=== PATIENT | female | born 1975 | race Caucasian/White ===

== ENCOUNTER 2017-08-27 06:13 | Emergency (ER) | payer OTHER ==
[2017-08-27 06:22] VITALS: PULSE 93; TEMP 97.3
--- NOTE | 2017-08-27 06:30 | CPEKG ---
Heart Rate: 91 RR Interval: 659 P-R Interval: 156 QRSD Interval: 104 QT Interval: 364 QTC Interval: 448 P [place]: 59 QRS [place]: 40 T Wave [place]: 30 EKG Severity - BORDERLINE ECG - EKG Impression: SINUS RHYTHM EKG Impression: PROBABLE LATERAL INFARCT, OLD Electronically Signed By: Shilpa Jorgensen 28-Aug-2017 07:16:10
[2017-08-27 06:44] LABS: PLATELET COUNT 243 10^3/uL (150-400)
--- NOTE | 2017-08-27 06:55 | EDPHY ---
H & P Stated Complaint: Chest pain, nausea, back pain Time Seen by Provider: 08/27/17 06:39 HPI/ROS: HPI The patient presents with chest pain which began at about a.m. This morning. The pain was pressure-like in nature and not radiate. It was moderate in severity. She fell asleep. However, awoke with continued pain. She has not had this pain before. It was associated with mild nausea. Thought she might being anxiety which she does suffer many took a dose of Ativan without much improvement in her symptoms[place]. She currently is feeling much better. She does not have any shortness of breath, dizziness, diaphoresis. She did have a cardiac stress test several years ago which was unremarkable. She has per tension. REVIEW OF SYSTEMS Constitutional: No fever, no chills. Eyes: No discharge. ENT: No sore throat. Cardiovascular: Positive for chest pain, no palpitations. Respiratory: No cough, no shortness of breath. Gastrointestinal: No abdominal pain, no vomiting. Genitourinary: No hematuria. Musculoskeletal: No back pain. Skin: No rashes. Neurological: No headache. PMHx: Hypertension, anxiety , fibromyalgia, obesity, GERD Soc Hx: Lives with family, nonsmoker PHYSICAL General Appearance: Alert, no distress Eyes: Pupils equal and round no pallor or injection ENT, Mouth: Mucous membranes moist Respiratory: There are no retractions, lungs are clear to auscultation Cardiovascular: Regular rate and rhythm Gastrointestinal: Abdomen is soft and non-tender, no masses, bowel sounds normal Neurological: A&O, moves all extremities Skin: Warm and dry, no rashes Musculoskeletal: Neck is supple non tender Extremities: symmetrical, full range of motion Psychiatric: Patient is oriented X 3, there is no agitation Source: Patient Exam Limitations: No limitations - Personal History LMP (Females 10-55): Unknown Current Tetanus Diphtheria and Acellular Pertussis (TDAP): Yes - Medical/Surgical History Hx Asthma: No Hx Chronic Respiratory Disease: No Hx Diabetes: No Hx Cardiac Disease: No Hx Renal Disease: No Hx Cirrhosis: No Hx Alcoholism: No Hx HIV/AIDS: No Hx Splenectomy or Spleen Trauma: No Other PMH: fibromylagia , HTN - Social History Smoking Status: Never smoked Constitutional: Initial Vital Signs Temperature (C) 36.3 C 08/27/17 06:18 Heart Rate 93 08/27/17 06:18 Respiratory Rate 20 08/27/17 06:18 Blood Pressure 166/97 H 08/27/17 06:18 O2 Sat (%) 98 08/27/17 06:18 O2 Delivery Mode Room Air Allergies/Adverse Reactions: No Known Allergies Allergy (Unverified 08/27/17 06:16) Medical Decision Making - Diagnostics EKG Interpretation: EKG: Complete interpretation has been separately recorded in the [employer] archive. Summary impression: Normal sinus rhythm, no ST segment changes Differential Diagnosis: 41-year-old female with obesity, hypertension, present room home with chest pain which began at about 1:00 a.m. This morning. She is now feeling better after taking Ativan 1 mg and baby aspirin at home. On exam, vital signs are normal, she is generally well-appearing. Differential diagnosis includes ACS, anxiety attack, GERD. I have calculated her HEART score at 2. Barring a normal troponin, I feel she can be evaluated as outpatient for this chest pain given resolution of her symptoms and her low score. In the emergency department, patient's labs were checked and were unremarkable. Chest x-ray was normal. Her chest pain subsided and she will be discharged home. I will refer her back to her primary care provider to discuss stress tests given that she has had 1 in the last several years. - Data Points Laboratory Results: Laboratory Results 08/27/17 06:35 08/27/17 06:35 Departure - Departure Disposition: Home, Routine, Self-Care Clinical Impression: Chest pain Condition: Good Instructions: Chest Pain (ED) Additional Instructions: Please return to the emergency department if you are worse in any way. Otherwise please follow-up with the architect in training listed below. Referrals: EDWARD POLLARD [Other] - As per Instructions Jigar Cali MD [Medical Doctor] - As per Instructions
[2017-08-27 07:43] VITALS: BP 129/88; RESP 18; O2SAT 96
== END 2017-08-27 07:48 | disposition home or self-care (01) ==
DX: R07.9 Chest pain, unspecified (principal); I10 Essential (primary) hypertension